=== PATIENT | female | born 1930 | race Caucasian/White ===

== ENCOUNTER 2016-11-12 14:55 | Emergency (ER) | payer MEDICARE, MEDICAID | END 2016-11-12 18:40 | disposition home or self-care (01) | LOC: D.ER 14:55 | DX: S80.01XA Contusion of right knee, initial encounter (principal); W06.XXXA Fall from bed, initial encounter; Y93.89 Activity, other specified; Y92.013 Bedroom of single-family (private) house as the place of occurrence of the external cause; S83.91XA Sprain of unspecified site of right knee, initial encounter; Z86.73 Personal history of transient ischemic attack (TIA), and cerebral infarction without residual deficits ==

== ENCOUNTER → 2018-11-21 10:41 | Outpatient (CLI) | payer MEDICARE | END | disposition home or self-care (01) | LOC: D.MRI 10:41 | PROVIDERS: ATTEND Family Medicine | DX: R52 Pain, unspecified (principal) ==